=== PATIENT | male | born 1985 | race Caucasian/White ===

== ENCOUNTER 2016-11-03 05:55 | Emergency (ER) | payer MEDICAID ==
[~2016-11-03] VITALS: Ht 172.7 cm; Wt 94.0 kg
[~2016-11-03 05:55] MED LIST: NO MEDS
[2016-11-03 05:57] VITALS: Ht 172.7 cm; Wt 94.0 kg
[2016-11-03] MEDS ORDERED: ALBUTEROL 0.5% (NEB) 2.5 MG/0.5 ML AMP INH STA (06:20)
[2016-11-03] MEDS ORDERED: IPRATROPIUM (NEB) 0.5 MG/2.5 ML AMP INH STA (06:20)
[2016-11-03] MEDS ORDERED: METHYLPREDNISOLONE 125 MG INJ IM STA (06:20)
--- NOTE | 2016-11-03 07:02 | RADRPT ---
PROCEDURE: XR Chest. CLINICAL INDICATION: Asthma exacerbation TECHNIQUE: A single AP view of the chest was obtained. COMPARISON: Chest x-ray dated 10/29/2013 FINDINGS: No focal airspace opacification, pleural effusion or pneumothorax is seen. The cardiomediastinal si lhouette is within normal limits for size. The osseous structures are unremarkable. IMPRESSION: No radiographic evidence of acute cardiopulmonary disease. RPTAT: HH .Billie Das MD, MD Date Time Electronically viewed and signed by .Billie Das MD, MD on 11/03/2016 07:01 .G/
--- NOTE | 2016-11-03 07:40 | RADRPT ---
PROCEDURE: XR Ankle. CLINICAL INDICATION: Right ankle pain following injury TECHNIQUE: 3 views of the right ankle are available for review COMPARISON: None available FINDINGS: The osseous structures demonstrate normal alignment and mineralization. No acute fracture or disloc ation is seen. The ankle mortise is intact. No periostitis or osteochondral lesion is identified. No significant soft tissue abnormality is seen. IMPRESSION: Unremarkable right ankle x-ray series. RPTAT: HH .Billie Das MD, MD Date Time Electronically viewed and signed by .Billie Das MD, MD on 11/03/2016 07:40 .G/
[2016-11-03] MEDS ORDERED: GUAI120S26 PO (08:12)
[2016-11-03] MEDS ORDERED: ALBU18HF INHALATION (08:12)
[2016-11-03] MEDS ORDERED: PRED20TA PO (08:12)
[2016-11-03 08:28] VITALS: BP 131/79; PULSE 97; RESP 18; TEMP 97.9
--- NOTE | 2016-11-03 12:12 | ERD ---
ER Documentation Chief Complaint Date/Time DATE: 11/03/16 TIME: 12:06 Chief Complaint cough x 4 days HPI 31-year-old male with no significant past medical history presents to the ED complaining of a productive cough that started 4 days ago. States that he feels congested and has wheezing. Denies any recent traveling. Denies any calf pain. Reports his cough is worse at night. States that he tried taking NyQuil without relief of his symptoms. Denies any fever, chills, chest pain, shortness of breath, abdominal pain, nausea, vomiting, diarrhea. States that his son is also sick with similar symptoms. ROS All systems reviewed and are negative except as per history of present illness. Medications Home Meds Active Scripts Prednisone* (Prednisone*) 20 Mg Tab, 40 MG PO DAILY for 4 Days, TAB Prov:ARNALDO CHOI PA-C 11/03/16 Jyfylphpyfh-P-Vpdmxexlpd Hb* (Guaifenesin* DM Syrup) 120 Ml Syrup, 10 ML PO Q4H Y for COUGH, #120 ML Prov:ARNALDO CHOI PA-C 11/03/16 Albuterol Sulfate* (Ventolin HFA*) 18 Gm Hfa.aer.ad, 2 PUFF INHALATION Q4H, #1 INHALER Prov:ARNALDO CHOI PA-C 11/03/16 Reported Medications [No Meds] No Conflict Check 10/24/10 Allergies Allergies: Coded Allergies: No Known Drug Allergies (Verified Allergy, Mild, 03/24/12) PMhx/Soc History of Surgery: No Anesthesia Reaction: No Hx Neurological Disorder: No Hx Respiratory Disorders: Yes (asthma) Hx Cardiac Disorders: No Hx Psychiatric Problems: No Hx Miscellaneous Medical Probl: No Hx Alcohol Use: No Hx Substance Use: No Hx Tobacco Use: No Smoking Status: Never smoker Physical Exam Vitals Vital Signs Date Time Temp Pulse Resp B/P Pulse Ox O2 Delivery O2 Flow Rate FiO2 11/03/16 08:28 97.9 97 18 131/79 98 Room Air 11/03/16 06:45 56 20 99 21 11/03/16 05:57 96.7 89 20 139/80 97 Physical Exam Const: Bci-xau-lxojywqct, well-nourished. In no acute distress. Head: Atraumatic, normocephalic Eyes: Normal Conjunctiva without injection. No purulent discharge. PERRL. EOMI ENT: Normal external ear. Ear canal without erythema. Tympanic membrane pearly ruelas without effusion or bulging. Nasal canal clear with normal turbinates. Moist oropharynx without tonsillar exudates. Non-erythematous pharynx. Uvula midline. No drooling. No trismus. Neck: Full range of motion. No meningismus. No cervical lymphadenopathy. Resp: Slight expiratory wheezing noted bilaterally. No rhonchi, rales, or crackles. No accessory muscle use. No retractions. Cardio: Regular rate and rhythm. No murmurs, rubs or gallops. Abd: Soft, non tender, non distended. Normal bowel sounds. No palpable masses. No rebound tenderness. No guarding. Skin: No petechiae or rashes Back: No midline tenderness. No CVA tenderness. Ext: No cyanosis, or edema. Neur: Awake and alert. Psych: Normal Mood and Affect Results 24 hrs Current Medications Medications (Trade) Dose Ordered Sig/Ren Route PRN Reason Start Time Stop Time Status Last Admin Dose Admin Albuterol (Proventil 0.5% (Neb)) 10 mg ONCE STAT INH 11/03/16 06:20 11/03/16 06:22 DC 11/03/16 06:34 Ipratropium [place] (Atrovent 0.02% (Neb)) 1 mg ONCE STAT INH 11/03/16 06:20 11/03/16 06:22 DC 11/03/16 06:34 Methylprednisolone Sodium Succinate (Solu-Medrol) 125 mg ONCE STAT IM 11/03/16 06:20 11/03/16 06:22 DC 11/03/16 06:36 Procedures/MDM This is a 31-year-old male with no significant past medical history presents the ED complaining of a dry cough and congestion. Patient is afebrile nontoxic appearing. Since patient did have slight auditory wheezing noted on his physical exam, therefore a breathing treatment consisting of 10 mg continuous albuterol, 1 mg Atrovent, 125 mg IM Solu-Medrol was ordered to further treat patient with improvement of his symptoms. While patient was given his Solu- Medrol injection, patient had a vasovagal episode here in the ED from a stress reaction from the visualization of the needle. An EKG was ordered to further evaluate patient. EKG reviewed and interpreted by Dr. Gresham Rate/Rhythm: [58 bpm, Normal Sinus Rhythm] No ectopy, no ST elevations, normal axis. QRS, ST, T-waves: [No changes consistent w/ acute ischemia] Impression: [No evidence of ischemia or arrhythmia] PROCEDURE: XR Chest. CLINICAL INDICATION: Asthma exacerbation TECHNIQUE: A single AP view of the chest was obtained. COMPARISON: Chest x-ray dated 10/29/2013 FINDINGS: No focal airspace opacification, pleural effusion or pneumothorax is seen. The cardiomediastinal silhouette is within normal limits for size. The osseous structures are unremarkable. IMPRESSION: No radiographic evidence of acute cardiopulmonary disease. Reevaluation of patient: Patient symptoms have improved and is no longer experiencing wheezing. Patient verbalized that he feels better. This patient presents to the ED with symptoms consistent with a viral acute upper respiratory infection. Patient is afebrile and has normal vital signs. Patient 's physical exam include lungs which were clear to auscultation and a normal pulse oximetry. Low suspicion for prolonged QT syndrome, Brugada syndrome, WPW, anemia, electrolyte abnormalities, acute myocardial infarction, pneumothorax, pneumonia, cardiac tamponade, pulmonary embolism, AAA, aortic dissection, Boerhaave's syndrome, cardiac dysrhythmias,meningitis, intracranial bleed, seizure, stroke, TIA, epiglottitis, otitis media, otitis externa, viral/strep pharyngitis, sinusitis, peritonsillar abscess, mastoiditis, retropharyngeal abscess, meningitis, sepsis, acute abdomen or other emergent conditions. This case was discussed with my supervising physician, Dr. Gresham who agreed with the management and discharge plan. Patient is hemodynamically stable. He is walking here in the ED without difficulty. Patient can be managed on an outpatient basis. Discharge medications: Prednisone, Guaifenesin DM, Ventolin Patient was instructed to return to the ED for any new or worsening symptoms. They should otherwise follow up with the primary care provider within 1-2 days. The patient's questions were answered at the time of discharge. Patient understood and agreed with discharge management. Departure Diagnosis: Primary Impression: URI (upper respiratory infection) URI type: unspecified URI Qualified Code: J06.9 - Upper respiratory tract infection, unspecified type Condition: Stable Patient Instructions: Uri, Viral W/ Wheezing (Adult) [facility] Usted se pradhan hecho un examen mdico de control que le indica que no est en xena condicin que requiera tratamiento urgente en el Departamento de Emergencia. Un estudio ms profundo y el tratamiento de farias condicin pueden esperar sin ningn riesgo hasta que usted sea atendida/o en el consultorio de farias mdico o xena cl maki. Es responsabilidad suya arreglar xena bianca para el seguimiento del maite. MANEJO DE CONDICIONES NO URGENTES EN EL FUTURO 1) Si usted tiene un mdico de atencin primaria: Usted debera llamar a farias mdico de atencin primaria antes de venir al departamento de emergencia. Despus de las horas de consultorio, farias doctor o farias asociado/a est disponible por telfono. El mdico o enfermero de nuria en el servicio telefnico puede asesorarle por marc medio para atender el problema, o maite contrario se puede programar xena bianca. 2) Si usted no tiene un mdico de atencin primaria: Llame al mdico o clnica de referencia que aparece abajo astrid las horas de consultorio para hacer xena bianca para que le vean. CLINICAS: [facility] [phone] [facility] [phone] [facility] [phone] [facility] [phone] [facility] [phone] [address] [facility]. [phone] [address] [facility]. [facility] () Usted se pradhan hecho un examen mdico de control que le indica que no est en xena condicin que requiera tratamiento urgente en el Departamento de Emergencia. Un estudio ms profundo y el tratamiento de farias condicin pueden esperar sin ningn riesgo hasta que usted sea atendida/o en el consultorio de farias mdico o xena cl maki. Es responsabilidad suya arreglar xena bianca para el seguimiento del maite. MANEJO DE CONDICIONES NO URGENTES EN EL FUTURO 1) Si usted tiene un mdico de atencin primaria: Usted debera llamar a farias mdico de atencin primaria antes de venir al departamento de emergencia. Despus de las horas de consultorio, farias doctor o farias asociado/a est disponible por telfono. El mdico o enfermero de nuria en el servicio telefnico puede asesorarle por marc medio para atender el problema, o maite contrario se puede programar xena bianca. 2) Si usted no tiene un mdico de atencin primaria: Llame al mdico o condado institucions de referencia que aparece abajo astrid las horas de consultorio para hacer xena bianca para que le vean. SI USTED NO PUEDE PAGAR PARA CLAUDE UN MEDICO puede ir a: [facility] [id number] [place] [address] [facility] [address] [place] [address] [facility] [address] [place] [address] [address] [facility] [address] [place], [place] [id number] Additional Instructions: Visite a farias mdico maana para un EXAMEN.Regrese a estas instalaciones si no se mejora nathaniel esperbamos o nathaniel le dijimos. ARNALDO CHOI PA-C Nov 03, 2016 12:12
== END 2016-11-03 08:28 | disposition home or self-care (01) ==
LOC: FTE 05:55
DX: J06.9 Acute upper respiratory infection, unspecified (principal); J45.901 Unspecified asthma with (acute) exacerbation
CPT/HCPCS: 71010; 73610; 93005; 94644; 96372; J2930; Z7502; Z7610